=== PATIENT | female | born 1985 | race Caucasian/White ===

== ENCOUNTER 2021-03-26 10:33 | Emergency (ER) | payer OTHER ==
[~2021-03-26 10:33] MED LIST: AUGMENTIN 875-1 EACH PO; KEFLEX250 MG PO; ROBITUSSIN DM10 ML PO
[2021-03-26 12:31] LABS: BASOPHIL 0.2 % (0-2); EOSINOPHIL 0.1 % (0-5); HCT 44.3 % (37.0-47.0); HGB 14.3 g/dl (12.5-16.0); LYMPHOCYTE 4.7 % (15-48); MCH 30.7 pg (25.0-31.0); MCHC 32.3 g/dL (32.0-36.0); MCV 95.1 fL (78.0-100.0); MONOCYTE 7.2 % (0-12); MPV 10.3 fL (6.0-9.5); NEUTROPHIL 86.9 % (41-80); NRBC 0; PLT 428 K/uL (150-400); RBC 4.66 M/uL (4.20-5.40); RDW 13.4 % (11.5-14.0)
[2021-03-26 12:43] LABS: BUN/CREAT RATIO (CALC) 14.8 RATIO; CREATININE 0.61 mg/dL (0.51-0.95); POTASSIUM 4.7 mmol/L (3.5-5.1)
[2021-03-26 12:51] LABS: WBC 32.7 K/uL (4.0-10.5)
[2021-03-26] MEDS ORDERED: CLEOCIN300 MG PO ×2 (14:46→14:47)
== END 2021-03-26 15:48 | disposition home or self-care (01) ==
LOC: FER 10:33
PROVIDERS: Emergency Medicine
DX: K04.7 Periapical abscess without sinus (principal); L03.211 Cellulitis of face
CPT/HCPCS: 36415; 70486; 80048; 85025; 87040; 96372; J1885

== ENCOUNTER 2021-05-15 20:50 | Emergency (ER) | payer OTHER ==
[~2021-05-15 20:50] MED LIST changes: +CLEOCIN300 MG PO
[2021-05-15] MEDS ORDERED: BACTRIM DS TAB1 EACH PO (23:01)
[2021-05-15] MEDS ORDERED: CEPHALEXIN500 MG PO (23:01)
== END 2021-05-15 23:10 | disposition home or self-care (01) ==
LOC: FER 20:50
DX: L02.416 Cutaneous abscess of left lower limb (principal)